=== PATIENT | male | born 1970 | race Hispanic/Latino ===

== ENCOUNTER → 2022-06-09 | Outpatient (CLI) | payer OTHER | END | disposition home or self-care (01) | LOC: RAH 13:33 → EDUNIT# 14:00 | PROVIDERS: ATTEND Internal Medicine Cardiovascular Disease | DX: Z13.6 Encounter for screening for cardiovascular disorders (principal) | CPT/HCPCS: 75571 ==

== ENCOUNTER → 2022-06-11 | Outpatient (CLI) | payer OTHER | END | disposition home or self-care (01) | LOC: SHCH 08:17 | PROVIDERS: ATTEND Internal Medicine Cardiovascular Disease | DX: R00.2 Palpitations (principal) | CPT/HCPCS: 93306 ==